=== PATIENT | male | born 1985 | race Caucasian/White ===

== ENCOUNTER 2020-05-22 10:19 | Emergency (ER) | payer SELFPAY ==
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
[2020-05-22] MEDS ORDERED: SMZ./TMP. 800/160 MG TABLET ONE (12:10)
[2020-05-22 16:49] VITALS: TEMP 98
[2020-05-22 16:51] VITALS: BP 110/68; O2SAT 99
== END 2020-05-22 12:05 | disposition home or self-care (01) ==
LOC: ER 10:19
DX: L02.416 Cutaneous abscess of left lower limb (principal)
CPT/HCPCS: 99283

== ENCOUNTER 2025-02-12 10:37 | Emergency (ER) | payer OTHER, SELFPAY ==
--- OUTSIDE RECORDS SUMMARY | 2025-02-12 10:40 | XMS REPORT | Continuity of Care Document ---
Author Name Unknown Address [address] [place] [address] [address] [place] [address] [facility] Address [address] [place] [address] [address] [place] [address] Care Team Providers Care Strapper Name Role Phone Unavailable Unavailable Unavailable Encounters Start Date/Time End Date/Time Encounter Type Admission Type Attending Clinicians [facility] Emergency Department Facility Care Department Encounter ID Source 2024-09-26 11:10:39 2024-09-26 11:10:39 Outpatient [facility] [id number] Varun Cobos 2024-08-29 13:58:50 2024-08-29 13:58:50 Outpatient [facility] [id number] Varun Cobos
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
[2025-02-12] MEDS ORDERED: TDAP (DIPHTH,PERTUSS(ACELL),TET VAC) 0.5 ML VIAL IMVAC ONE (10:59)
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
[2025-02-12 11:26] VITALS: TEMP 98.5; O2SAT 100
[2025-02-12 11:28] VITALS: BP 117/75
== END 2025-02-12 11:16 | disposition home or self-care (01) ==
LOC: ER 10:37
DX: S40.811A Abrasion of right upper arm, initial encounter (principal); Y04.1XXA Assault by human bite, initial encounter
CPT/HCPCS: 90715; 96372; 99284